=== PATIENT | female | born 1960 | race African-American/Black ===

== ENCOUNTER 2017-06-14 10:00 | Inpatient (IN) | payer OTHER ==
[~2017-06-14] VITALS: Ht 158.8 cm; Wt 75.3 kg
[2017-06-14] VITALS (10 sets, daily range): BP systolic 127–167; BP diastolic 80–102
[~2017-06-14 10:00] MED LIST: BUPROPION HCL100 MG ORAL; FLUOXETINE HCL20 MG ORAL; MULTIVITAMINS1 EAC2 ORAL; OMEPRAZOLE20 M2 ORAL; ZYPREXA2.5 MG ORAL
[2017-06-14] MEDS ORDERED: TYLENOL325 MG ORAL (10:53)
[2017-06-14] MEDS ORDERED: Ropivacaine 5mg/ml Vial 30ml INJ ONE (11:35)
[2017-06-14] MEDS ORDERED: Bacitracin 50000 Units Vial ONE (11:35)
[2017-06-14] MEDS ORDERED: Thrombin 5000 units spray kit TOPIC ONE (11:35)
[2017-06-14] MEDS ORDERED: Gelfoam Absorbable 1gm powder pkt TOPIC ONE (11:35)
[2017-06-14] MEDS ORDERED: Thrombin 5000 units TOPIC ONE (11:35)
[2017-06-14] MEDS ORDERED: NS Irrig 1000ml ONE (12:00)
[2017-06-14] MEDS ORDERED: fentaNYL 100 mcg/2 mL IV ONE (12:00)
[2017-06-14] MEDS ORDERED: Zemuron 50mg/5ml Inj IV ONE (12:00)
[2017-06-14] MEDS ORDERED: Sterile Water Irrig 1000ml IRRIG ONE (12:00)
[2017-06-14] MEDS ORDERED: LR 1000ml ONE (12:00)
[2017-06-14] MEDS ORDERED: Midazolam 2mg/2ml Inj ONE (12:00)
[2017-06-14] MEDS ORDERED: Propofol 200mg/20ml IV ONE (12:00)
--- NOTE | 2017-06-14 12:10 | Pre-Procedure Note/Attestation ---
Pre-Procedure Note/Attestation Complete Prior to Procedure Planned Procedure: not applicable Procedure Narrative: For L4-5 Anterior Decompression and stabelization with InFix Device Indications for Procedure Pre-Operative Diagnosis: Instability Disc Herniation L4-5 Attestation I attest that I discussed the nature of the procedure; its benefits; risks and complications; and alternatives (and the risks and benefits of such alternatives ), prior to the procedure, with the patient (or the patient's legal credit resolution representative). I attest that, if there was a reasonable possibility of needing a blood transfusion, the patient (or the patient's legal credit resolution representative) was given the [place] [facility] [employer] [facility] standardized written summary, pursuant to the Mahamed Burna Blood Safety Act ([place] Health and Safety Code # 1645, as amended). I attest that I re-evaluated the patient just prior to the surgery and that there has been no change in the patient's H&P, except as documented below: MALACHI COOPER Jun 14, 2017 12:10
[2017-06-14] MEDS ORDERED: Heparin 5000 units/ml inj ONE (12:12)
[2017-06-14] MEDS ORDERED: LR 1000ml 1,000 ML IVLG SCH (13:08)
[2017-06-14] MEDS ORDERED: Meperidine 50mg/ml Inj(FOR RIGORS ONLY) IVP ONE (13:15)
[2017-06-14] MEDS ORDERED: DiphenhydrAMINE 50mg/ml Inj IVP PRN (13:15)
[2017-06-14] MEDS ORDERED: Hydromorphone 0.5mg/0.5ml inj IVP PRN (13:15)
[2017-06-14] MEDS ORDERED: LR 1000ml 1,000 ML IV SCH (13:15)
[2017-06-14] MEDS ORDERED: LORazepam Inj 2mg/ml 1ml IV PRN (13:15)
--- NOTE | 2017-06-14 13:19 | Anethesia Preoperative Eval ---
Anesthesia Pre-op PMH/ROS General Date of Evaluation: Jun 14, 2017 Time of Evaluation: 12:00 Anesthesiologist: Tico ASA Score: ASA 2 Mallampati Score Class I : Soft palate, uvula, fauces, pillars visible Class II: Soft palate, uvula, fauces visible Class III: Soft palate, base of uvula visible Class IV: Only hard plate visible Mallampati Classification: Class II Surgeon: Jorge Diagnosis: Back pain Surgical Procedure: ALIF L4-5 Family History: no anesthesia problems Allergies: Coded Allergies: SULFA (SULFONAMIDE ANTIBIOTICS) (Verified Allergy, Intermediate, hives, ) Medications: see eMAR Past Medical History Cardiovascular: Denies: HTN, CAD, [place], valve dz, arrhythmia, other Pulmonary: Denies: asthma, COPD, EKATERINA, other Gastrointestinal/Genitourinary: Reports: GERD, Denies: CRI, ESRD, other Neurologic/Psychiatric: Reports: depression/anxiety, Denies: dementia, CVA, TIA, other Endocrine: Denies: DM, hypothyroidism, steroids, other HEENT: Denies: cataract (L), cataract (R), glaucoma, [place] (L), [place] (R), other Hematology/Immune: Reports: anemia, Denies: DVT, bleeding disorder, other Musculoskeletal/Integumentary: Denies: OA, RA, DJD, DDD, edema, other PMH Narrative: GERD, anemia, anxiety/depression PSxH Narrative: Fundoplication Anesthesia Pre-op Phys. Exam Physician Exam Last Vital Signs Date Time Temp Pulse Resp B/P (MAP) Pulse Ox O2 Delivery O2 Flow Rate FiO2 06/14/17 10:50 98.7 80 19 129/87 100 Room Air Constitutional: NAD Neurologic: CN 2-12 intact Cardiovascular: RRR, no M/R/G Respiratory: CTA Gastrointestinal: S/NT/ND Airway Exam Mallampati Score: Class II MO: full ROM: full Teeth: intact Anesthesia Pre-op A/P Labs WNL Studies Pre-op Studies: EKG - NSR, CXR - NAD Risk Assessment & Plan Assessment: Healthy female wihh h/o GERD,anemia and anxiety here for ALIF L4-5 Plan: GETA, Sedline Status Change Before Surgery: No Pre-Antibiotics Drug: Ancef Given Within 1 Hr of Incision: Yes Time Given: 12:30 ADRIANNA EUBANKS M.D. Jun 14, 2017 13:19
--- NOTE | 2017-06-14 13:20 | Immediate Post-Op Evaluation ---
Immediate Post-Op Evalulation Immediate Post-Op Evalulation Procedure: ALIF L4-5 Date of Evaluation: Jun 14, 2017 Time of Evaluation: 14:30 IV Fluids: 1450 Estimated Blood Loss: 50 Urinary Output: 20 Blood Pressure Systolic: 167 Blood Pressure Diastolic: 102 Pulse Rate: 94 Respiratory Rate: 22 O2 Sat by Pulse Oximetry: 99 Temperature (Fahrenheit): 98.0 Pain Score (1-10): 4 Nausea: No Vomiting: No Complications No complication Patient Status: awake, patent, extubated, none Hydration Status: adequate Drug: Ancef Given Within 1 Hr of Incision: Yes Time Given: 12:30 ADRIANNA EUBANKS M.D. Jun 14, 2017 13:20
[2017-06-14] MEDS ORDERED: PCA HYDROmorphone 1mg/ml 30 ML IV ONE (14:42)
--- NOTE | 2017-06-14 14:43 | Operative Note - PDOC ---
Operative Note Operative Note Pre-op Diagnosis: Instability Disc Herniation L4-5 Procedure: ALIF L4-5 with internal dixation Post-op Diagnosis: same as pre-op Operative Findings: consistent w/pre-op dx studies Surgeon: Jenae Residential Sales Manager: JEFFREY Yates Additional Surgeons: Johnson - Vascular Access Anesthesiologist: Tico Anesthesia: general Specimen: yes Complications: none Condition: stable Estimated Blood Loss: minimal Drains: none Implant(s) used?: Yes - Cyndi InFix with Cyndi DBMALACHI DAN Jun 14, 2017 14:43
[2017-06-14] MEDS ORDERED: Rate Change PCA 1 Each MISC PRN (14:45)
[2017-06-14] MEDS ORDERED: Naloxone 0.4mg/ml Inj IVP PRN ×2 (14:45)
[2017-06-14] MEDS ORDERED: HYDROmorphone 1mg/ml Carpuject IVP PRN (14:45)
[2017-06-14] MEDS ORDERED: Norco 7.5mg/325mg tab ORAL PRN ×2 (14:45)
[2017-06-14] MEDS ORDERED: HYDROmorphone 1mg/ml Carpuject SUBQ PRN (14:45)
[2017-06-14] MEDS ORDERED: Acetaminophen 650 MG SUPP RECTAL PRN (14:45)
[2017-06-14] MEDS ORDERED: PCA Education Pamphlet MISC ONE (14:45)
[2017-06-14] MEDS ORDERED: Norco 5mg/325mg tab ORAL PRN (14:45)
[2017-06-14] MEDS ORDERED: LORazepam 1mg tab ORAL PRN (14:45)
[2017-06-14] MEDS: PCA HYDROmorphone 1mg/ml 30 ML IV PRN (14:53)
--- NOTE | 2017-06-14 16:35 | Diagnostic Imaging Report ---
Indication: Back pain Comparison: None Findings: Fluoroscopic views of the lumbar spine were obtained. L4-5 disc replacement noted on several views. Impression: Intraoperative imaging
[2017-06-14] MEDS: DiphenhydrAMINE 50mg/ml Inj IVP PRN (18:11)
[2017-06-14] MEDS: PCA shift volume MISC SCH (19:00)
--- NOTE | 2017-06-14 19:00 | Operative Note - Dictated ---
DATE OF OPERATION: 06/14/2017 FACILITY: [facility]. SURGEON: Keaton Emanuel M.D. CO-SURGEON FOR VASCULAR APPROACH: Tae Johnson M.D. WIRE BRUSH OPERATOR: AYO Ibarra. ANESTHESIOLOGIST: Mahamed Doshi M.D. ANESTHESIA: General endotracheal with arterial blood pressure monitoring. PREOPERATIVE DIAGNOSES: Degenerative spondylo at L4-L5 with significant canal stenosis and neural foraminal narrowing causing back and leg pain. POSTOPERATIVE DIAGNOSES: Degenerative spondylo at L4-L5 with significant canal stenosis and neural foraminal narrowing causing back and leg pain. OPERATIVE PROCEDURE: Left-sided pararectus retroperitoneal approach to the lumbar spine with vessel mobilization and retraction by Dr. Johnson using a table fixed frame and reverse tip blades. An anterior annulotomy was done along with a nuclear diskectomy, partial vertebrectomy, and bilateral neural foraminotomy, and neurolysis. Open reduction and internal fixation was accomplished using an infix device with a medium footplate 10 mm high prosthesis with 3+ 3 degrees of lordosis added. Fusion was accomplished using bone protein and autogenous bone harvested during the decompression portion of the procedure. Image intensifier was used to aid in placement of the prosthesis. Pulse oximetry was used to monitor the lower extremities during the procedure. The patient was prepped and draped in supine. The lower abdomen was exposed and a left pararectus incision was made by Dr. Johnson. A retroperitoneal approach was used to reach the front of the lumbar spine. The aorta and vena cava were both mobilized and retracted using a table fixed frame with reverse tip blades. Center of the disk was marked, checked with image, and anterior annulotomy was done and then a nuclear diskectomy was done removing the cartilaginous endplate and soft nuclear disk. [id number] distraction was accomplished with detachable lordotic distractors beginning at 8 and progressing to 12 mm. Kerrisons, pituitaries, straight and angled were used to remove the disk and endplate. Larger instruments were used in the front progressing to smaller in the back. The PLL and posterior disk anulus was completely removed in each of the foramina right and left was completely opened. The space was templated up to 8 mm with a medium footprint. This fully filled the space created normal lordosis and reduced the spondylo. A 3+ 3 degrees of lordosis was added. The final endplate was then tapped into place, checked for positioning and side struts were inserted. They were checked again and then cold welded. Bone from the decompression was placed between the plates as well as a bone protein. The wound was closed in layers including the anterior posterior sheath, subcutaneous and skin. Blood loss was well under 50 mL. The patient was placed in a bulky compression dressing, returned to recovery room in good condition. Keaton Emanuel M.D. DR: HEATHER JOB#: [id number] CC: LAURIE
--- NOTE | 2017-06-14 19:45 | Operative Note - Dictated ---
DATE OF OPERATION: 06/14/2017 VASCULAR SURGEON: Tae Johnson M.D. SPINE SURGEON: Keaton Emanuel M.D. PREOPERATIVE DIAGNOSIS: Degenerative disk disease. POSTOPERATIVE DIAGNOSIS: Degenerative disk disease. PROCEDURE PERFORMED: Anterior retroperitoneal exposure of L4-L5 vertebral interspace. INDICATIONS: The patient is a very pleasant woman, who is seen in my office prior to surgery. She has been scheduled for anterior fusion at L4-L5. She has no prior history of anterior spine surgery. No history of deep venous thrombosis or bleeding complications were described. She was made aware of the risks of surgery including possibly vascular injury, possible need for blood transfusion, and deep venous thrombosis. DESCRIPTION OF FINDINGS: A vertical midline incision was used. A left retroperitoneal approach was used. There is no peritoneal or ureteral violation. There is no vascular injury. Exposure of L4-L5 was obtained by retraction of left iliac vessels towards the patient's right above the iliac bifurcation. Fluoroscopy was used to confirm the appropriate level prior to instrumentation. Upon completion, the peritoneum and ureter were intact. Pulse oximetry was normal on the left leg throughout the case. Blood loss was less than 50 mL and complications were none. DESCRIPTION OF PROCEDURE: The patient was taken to the operating room. General anesthesia was used. IV antibiotics were given. The patient's abdomen was prepped and draped. Appropriate time-out for procedures were taken. A vertical midline incision was made infraumbilically. The anterior fascia was incised longitudinally midline. A plane was identified posterior to the left rectus abdominis developed posterolaterally towards the patient's left. The retroperitoneal space was entered below the arcuate line. The peritoneum and ureter were mobilized towards the patient's right exposing the left common iliac artery and vein. The dissection was carried to the left side of the left common iliac artery and vein. Overlying lymphatics were ligated with vascular clips. The iliolumbar vein was identified and encircled using a 2-0 silk tie and then triply ligated proximally and distally with vascular clips and then divided. This allowed us to retract the left iliac vessels towards the patient's right. The L4 segmental artery and vein were also identified, ligated with vascular clips, and then divided, and then the Omni retractor was set in place. Guo blades were used to retract the lateral aspects and then fluoroscopy was used to confirm the appropriate level. Instrumentation was performed at L4-L5 dictated separately. On completion, the peritoneum and ureter were intact and iliac vessels were intact. Anterior fascia was then closed using #1 PDS in a running fashion. The skin and subcutaneous tissue were closed with 3-0 Vicryl and 4-0 Monocryl in a running subcuticular closure technique. Tae Johnson M.D. DR: ALINE JOB#: [id number] CC:
--- NOTE | 2017-06-14 20:43 | General Progress Note ---
Assessment/Plan Assessment/Plan Instability Disc Herniation L4-5 ALIF L4-5 with internal dixation Lumbar disc disease PLAN 1. incentive spirometry 2. DVT prophylaxis 3. PT evaluation and therapy 4. Hydration 5. Pain management 6. discharge once stable with outpatient follow up Subjective Allergies: Coded Allergies: SULFA (SULFONAMIDE ANTIBIOTICS) (Verified Allergy, Intermediate, hives, ) Subjective post op Objective Last 24 Hour Vital Signs Date Time Temp Pulse Resp B/P (MAP) Pulse Ox O2 Delivery O2 Flow Rate FiO2 06/14/17 16:50 22 06/14/17 16:20 22 06/14/17 15:50 22 06/14/17 15:35 22 06/14/17 15:30 97.6 06/14/17 15:26 97.6 100 18 136/80 100 Nasal Cannula 3.0 06/14/17 15:23 97.6 06/14/17 15:20 19 06/14/17 15:15 97 14 127/86 100 Nasal Cannula 3.0 06/14/17 15:05 91 20 141/84 100 Nasal Cannula 3.0 06/14/17 15:05 12 06/14/17 14:56 97.6 06/14/17 14:55 93 18 138/88 100 Nasal Cannula 3.0 06/14/17 14:53 13 06/14/17 14:40 88 18 151/89 100 Nasal Cannula 3.0 06/14/17 14:30 87 18 142/89 100 Simple Mask 6.0 06/14/17 14:25 86 11 147/85 100 Simple Mask 6.0 06/14/17 14:24 94 22 99 06/14/17 14:20 98.9 90 15 167/102 100 Simple Mask 6.0 06/14/17 10:50 98.7 80 19 129/87 100 Room Air Intake and Output 06/14/17 06/15/17 19:00 07:00 Intake Total 3625 ml Output Total 70 ml Balance 3555 ml Intake IV Total 3625 ml Output Urine Total 20 ml Estimated Blood Loss 50 ml # Voids 1 Height (Feet): 5 Height (Inches): 2.50 Weight (Pounds): 166 Objective WDWN NAD clear breath sounds bilaterally without rhonchi or wheeze [id number] without MRG no CCE nonfocal BINU MERCEDES Jun 14, 2017 20:43
[2017-06-14] MEDS: ceFAZolin sod 1 GM in D5W 55 ML IV SCH (21:45)
[2017-06-15] VITALS: BP 109/73
[2017-06-15 04:00] VITALS: BP 106/68
[2017-06-15] MEDS: ceFAZolin sod 1 GM in D5W 55 ML IV SCH ×2 (05:43→13:53)
[2017-06-15] MEDS: PCA shift volume MISC SCH ×2 (07:00→19:10)
[2017-06-15] MEDS: DiphenhydrAMINE 50mg/ml Inj IVP PRN ×2 (07:42→15:13)
--- NOTE | 2017-06-15 08:34 | 48 Hour Post Anesthesia Eval ---
Post Anesthesia Evaluation Procedure: ALIF L4-5 Date of Evaluation: Jun 15, 2017 Time of Evaluation: 13:35 Blood Pressure Systolic: 106 0: 68 Pulse Rate: 89 Respiratory Rate: 18 Temperature (Fahrenheit): 99.3 O2 Sat by Pulse Oximetry: 96 Airway: patent Nausea: No Vomiting: No Pain Intensity: 4 Hydration Status: adequate Cardiopulmonary Status: Stable Mental Status/LOC: patient returned to baseline Follow-up Care/Observations: As per surgery Post-Anesthesia Complications: No anesthetic complication Follow-up care needed: N/A ADRIANNA EUBANKS M.D. Jun 15, 2017 08:33
[2017-06-15 08:38] VITALS: BP 112/74
--- NOTE | 2017-06-15 09:38 | General Progress Note ---
Assessment/Plan Assessment/Plan Instability Disc Herniation L4-5 ALIF L4-5 with internal dixation Lumbar disc disease PLAN 1. incentive spirometry 2. DVT prophylaxis 3. PT evaluation and therapy 4. Hydration and advance diet per surgery 5. Pain management 6. discharge once stable with outpatient follow up Subjective Allergies: Coded Allergies: SULFA (SULFONAMIDE ANTIBIOTICS) (Verified Allergy, Intermediate, hives, ) Subjective post op Objective Last 24 Hour Vital Signs Date Time Temp Pulse Resp B/P (MAP) Pulse Ox O2 Delivery O2 Flow Rate FiO2 06/15/17 08:38 98.7 85 20 112/74 94 Room Air 06/15/17 08:33 89 18 96 06/15/17 08:00 18 06/15/17 04:11 18 06/15/17 04:00 99.3 89 18 106/68 96 Room Air 06/15/17 00:00 18 06/15/17 00:00 98.7 88 18 109/73 98 Nasal Cannula 2.0 06/14/17 21:15 98.8 06/14/17 20:00 99.5 88 18 130/84 99 Nasal Cannula 2.0 06/14/17 20:00 18 06/14/17 16:50 22 06/14/17 16:20 22 06/14/17 15:50 22 06/14/17 15:35 22 06/14/17 15:30 97.6 06/14/17 15:26 97.6 100 18 136/80 100 Nasal Cannula 3.0 06/14/17 15:23 97.6 06/14/17 15:20 19 06/14/17 15:15 97 14 127/86 100 Nasal Cannula 3.0 06/14/17 15:05 91 20 141/84 100 Nasal Cannula 3.0 06/14/17 15:05 12 06/14/17 14:56 97.6 06/14/17 14:55 93 18 138/88 100 Nasal Cannula 3.0 06/14/17 14:53 13 06/14/17 14:40 88 18 151/89 100 Nasal Cannula 3.0 06/14/17 14:30 87 18 142/89 100 Simple Mask 6.0 06/14/17 14:25 86 11 147/85 100 Simple Mask 6.0 06/14/17 14:24 94 22 99 06/14/17 14:20 98.9 90 15 167/102 100 Simple Mask 6.0 06/14/17 10:50 98.7 80 19 129/87 100 Room Air Height (Feet): 5 Height (Inches): 2.50 Weight (Pounds): 166 Objective WDWN NAD clear breath sounds bilaterally without rhonchi or wheeze [id number] without MRG no CCE nonfocal BINU MERCEDES Jun 15, 2017 09:38
[2017-06-15 12:00] VITALS: BP 115/69
[2017-06-15 16:18] VITALS: BP 115/70
[2017-06-15 20:07] VITALS: BP 144/89
[2017-06-15] MEDS: PCA HYDROmorphone 1mg/ml 30 ML IV PRN (23:10)
[2017-06-16] VITALS (7 sets, daily range): BP systolic 111–132; BP diastolic 63–83
[2017-06-16] MEDS: PCA shift volume MISC SCH (07:00)
--- NOTE | 2017-06-16 09:48 | General Progress Note ---
Assessment/Plan Assessment/Plan Instability Disc Herniation L4-5 ALIF L4-5 with internal dixation Lumbar disc disease PLAN 1. incentive spirometry 2. DVT prophylaxis 3. PT evaluation and therapy 4. Hydration and advance diet per surgery 5. Pain management 6. discharge once stable with outpatient follow up Subjective Allergies: Coded Allergies: SULFA (SULFONAMIDE ANTIBIOTICS) (Verified Allergy, Intermediate, hives, ) Subjective post op stable working with PT Objective Last 24 Hour Vital Signs Date Time Temp Pulse Resp B/P (MAP) Pulse Ox O2 Delivery O2 Flow Rate FiO2 06/16/17 08:00 99.5 91 18 125/77 97 Room Air 06/16/17 04:37 99.5 93 18 116/72 95 Room Air 06/16/17 04:00 18 06/16/17 00:15 98.9 91 18 112/70 97 Room Air 06/16/17 00:00 17 06/15/17 20:07 99.4 94 19 144/89 99 Room Air 06/15/17 20:00 17 06/15/17 16:18 98.7 88 20 115/70 96 Room Air 06/15/17 16:00 19 06/15/17 12:00 98.6 87 19 115/69 96 Room Air 06/15/17 12:00 19 Height (Feet): 5 Height (Inches): 2.50 Weight (Pounds): 166 Objective WDWN NAD clear breath sounds bilaterally without rhonchi or wheeze [id number] without MRG no CCE nonfocal BINU MERCEDES Jun 16, 2017 09:48
[2017-06-16] MEDS: DiphenhydrAMINE 50mg/ml Inj IVP PRN (10:44)
--- NOTE | 2017-06-16 13:07 | General Surgery Progress Note ---
General Surgery-Progress Note Subjective Procedure Performed ALIF L4-5 with internal dixation Symptoms: improved Objective Last 24 Hour Vital Signs Date Time Temp Pulse Resp B/P (MAP) Pulse Ox O2 Delivery O2 Flow Rate FiO2 06/16/17 12:00 17 06/16/17 12:00 98.3 88 18 132/83 99 Room Air 06/16/17 08:00 99.5 91 18 125/77 97 Room Air 06/16/17 08:00 18 06/16/17 04:37 99.5 93 18 116/72 95 Room Air 06/16/17 04:00 18 06/16/17 00:15 98.9 91 18 112/70 97 Room Air 06/16/17 00:00 17 06/15/17 20:07 99.4 94 19 144/89 99 Room Air 06/15/17 20:00 17 06/15/17 16:18 98.7 88 20 115/70 96 Room Air 06/15/17 16:00 19 Dressing: dry Wound: clean Drains: none Additional Comments Patient not passing gas regularly >> continue NPO. PT / OT working with patient MALACHI Villarreal Jun 16, 2017 13:07
[2017-06-16] MEDS ORDERED: Naloxone 0.4mg/ml Inj IVP PRN ×2 (20:15)
[2017-06-16] MEDS ORDERED: DiphenhydrAMINE 50mg/ml Inj IVP PRN ×2 (20:15)
[2017-06-16] MEDS ORDERED: Rate Change PCA 1 Each MISC PRN ×2 (20:15)
[2017-06-16] MEDS ORDERED: PCA HYDROmorphone 1mg/ml 30 ML IV PRN (20:15)
[2017-06-16] MEDS ORDERED: PCA Education Pamphlet MISC ONE (21:30)
[2017-06-17 04:00] VITALS: BP 131/80
[2017-06-17] MEDS ORDERED: PCA shift volume MISC SCH ×2 (07:00)
[2017-06-17 08:44] VITALS: BP 119/81
--- NOTE | 2017-06-17 09:21 | General Progress Note ---
Assessment/Plan Assessment/Plan Instability Disc Herniation L4-5 ALIF L4-5 with internal dixation Lumbar disc disease PLAN 1. incentive spirometry 2. DVT prophylaxis 3. PT evaluation and therapy 4. advance diet and dc in am 5. Pain management 6. discharge once stable with outpatient follow up Subjective Allergies: Coded Allergies: SULFA (SULFONAMIDE ANTIBIOTICS) (Verified Allergy, Intermediate, hives, ) Subjective post op stable and tolerating liquids working with PT Objective Last 24 Hour Vital Signs Date Time Temp Pulse Resp B/P (MAP) Pulse Ox O2 Delivery O2 Flow Rate FiO2 06/17/17 08:44 97.7 89 20 119/81 99 Room Air 06/17/17 08:00 18 06/17/17 04:19 18 06/17/17 04:00 99.2 86 18 131/80 99 Room Air 06/17/17 00:27 18 06/16/17 23:51 99.1 84 18 111/68 98 Room Air 06/16/17 23:28 99.6 06/16/17 22:58 18 06/16/17 20:39 18 06/16/17 20:00 99.6 91 18 119/77 97 Room Air 06/16/17 18:03 99.1 06/16/17 16:00 18 06/16/17 16:00 99.4 86 18 112/63 97 Room Air 06/16/17 12:00 17 06/16/17 12:00 98.3 88 18 132/83 99 Room Air Intake and Output 06/17/17 06/18/17 19:00 07:00 Intake Total 320 ml Balance 320 ml Intake Oral 320 ml # Voids 1 Height (Feet): 5 Height (Inches): 2.50 Weight (Pounds): 166 Objective WDWN NAD clear breath sounds bilaterally without rhonchi or wheeze [id number] without MRG no CCE nonfocal BINU MERCEDES Jun 17, 2017 09:21
[2017-06-17 12:00] VITALS: BP 117/78
[2017-06-17 15:38] VITALS: BP 112/83
[2017-06-17 20:00] VITALS: BP 117/76
[2017-06-18] VITALS: BP 116/73
[2017-06-18 04:00] VITALS: BP 123/86
[2017-06-18 08:00] VITALS: BP 115/91
--- NOTE | 2017-06-18 08:55 | General Progress Note ---
Assessment/Plan Assessment/Plan Instability Disc Herniation L4-5 ALIF L4-5 with internal dixation Lumbar disc disease PLAN 1. incentive spirometry 2. DVT prophylaxis 3. PT evaluation and therapy 4. advance diet and dc later today if stable 5. Pain management 6. discharge once stable with outpatient follow up Subjective Allergies: Coded Allergies: SULFA (SULFONAMIDE ANTIBIOTICS) (Verified Allergy, Intermediate, hives, ) Subjective post op vomited x 1 working with PT Objective Last 24 Hour Vital Signs Date Time Temp Pulse Resp B/P (MAP) Pulse Ox O2 Delivery O2 Flow Rate FiO2 06/18/17 08:00 97.5 82 18 115/91 Room Air 06/18/17 04:00 97.5 76 18 123/86 100 Room Air 06/18/17 00:26 98.5 06/18/17 00:00 97.9 82 18 116/73 100 Room Air 06/17/17 20:00 98.5 96 18 117/76 97 Room Air 06/17/17 15:38 97.9 80 20 112/83 100 Room Air 06/17/17 12:00 98.3 85 20 117/78 100 Room Air Height (Feet): 5 Height (Inches): 2.50 Weight (Pounds): 166 Objective WDWN NAD clear breath sounds bilaterally without rhonchi or wheeze [id number] without MRG no CCE nonfocal BINU MERCEDES Jun 18, 2017 08:55
--- NOTE | 2017-06-18 09:42 | General Surgery Progress Note ---
General Surgery-Progress Note Subjective Procedure Performed ALIF L4-5 with internal dixation Symptoms: improved Objective Last 24 Hour Vital Signs Date Time Temp Pulse Resp B/P (MAP) Pulse Ox O2 Delivery O2 Flow Rate FiO2 06/18/17 08:00 97.5 82 18 115/91 Room Air 06/18/17 04:00 97.5 76 18 123/86 100 Room Air 06/18/17 00:26 98.5 06/18/17 00:00 97.9 82 18 116/73 100 Room Air 06/17/17 20:00 98.5 96 18 117/76 97 Room Air 06/17/17 15:38 97.9 80 20 112/83 100 Room Air 06/17/17 12:00 98.3 85 20 117/78 100 Room Air Dressing: dry Wound: clean Additional Comments Patient attempted solid food and dis not tolerate this AM. Neuro intact. PT / OT continues. Dr. Pearl liriano. MALACHI COOPER Jun 18, 2017 09:42
[2017-06-18 12:00] VITALS: BP 113/66
[2017-06-18 16:00] VITALS: BP 139/73
[2017-06-18 20:59] VITALS: BP 124/82
[2017-06-19 00:30] VITALS: BP 128/80
[2017-06-19 04:00] VITALS: BP 130/70
[2017-06-19 08:00] VITALS: BP 116/77
--- NOTE | 2017-06-19 10:41 | General Progress Note ---
Assessment/Plan Problem List: (1) GERD (gastroesophageal reflux disease) ICD Codes: K21.9 - Gastro-esophageal reflux disease without esophagitis SNOMED: 342272517 (2) Vomiting ICD Codes: R11.10 - Vomiting, unspecified SNOMED: 929966788 (3) Disc disorder of lumbar region ICD Codes: M51.9 - Unspecified thoracic, thoracolumbar and lumbosacral intervertebral disc disorder SNOMED: 03757450, 381939231 Status: stable, progressing Assessment/Plan added ppi pain rx mobilize dc planning when able to tolerate pos Subjective ROS Limited/Unobtainable: No Constitutional: Reports: malaise, weakness HEENT: Reports: no symptoms Cardiovascular: Reports: no symptoms Respiratory: Reports: no symptoms Gastrointestinal/Abdominal: Reports: nausea, vomiting Genitourinary: Reports: no symptoms Neurologic/Psychiatric: Reports: no symptoms Endocrine: Reports: no symptoms Hematologic/Lymphatic: Reports: no symptoms Allergies: Coded Allergies: SULFA (SULFONAMIDE ANTIBIOTICS) (Verified Allergy, Intermediate, hives, ) All Systems: reviewed and negative except above Subjective not tolerating pos. vomiting yesterday, stomach feels "numb" Not getting her PPI Objective Last 24 Hour Vital Signs Date Time Temp Pulse Resp B/P (MAP) Pulse Ox O2 Delivery O2 Flow Rate FiO2 06/19/17 09:48 97.9 06/19/17 08:00 98.9 83 18 116/77 97 Room Air 06/19/17 04:00 97.9 75 18 130/70 96 Room Air 06/19/17 00:30 98.2 84 19 128/80 97 Room Air 06/18/17 20:59 98.4 89 20 124/82 99 Room Air 06/18/17 16:00 97.8 78 18 139/73 98 Room Air 06/18/17 12:00 98.2 79 18 113/66 98 Room Air Intake and Output 06/19/17 06/20/17 19:00 07:00 Intake Total 240 ml Balance 240 ml Intake Oral 240 ml Height (Feet): 5 Height (Inches): 2.50 Weight (Pounds): 166 General Appearance: WD/WN, alert Neck: supple Cardiovascular: normal rate, regular rhythm Respiratory/Chest: chest wall non-tender, lungs clear, normal breath sounds, no respiratory distress Edema: no edema noted Arm (L), no edema noted Arm (R), no edema noted Leg (L), no edema noted Leg (R), no edema noted Pedal (L), no edema noted Pedal (R), no edema noted Generalized ZOLTAN AGUILAR Jun 19, 2017 10:41
[2017-06-19 11:41] LABS: BASOPHILS % (AUTO) 0.5 % (0.0-2.0); MEAN CORPUSCULAR HEMOGLOBIN 27.9 PG (27.0-31.0); MEAN CORPUSCULAR VOLUME 90 FL (80-99); MEAN PLATELET VOLUME 8.9 FL (6.5-10.1); MONOCYTES % (AUTO) 4.9 % (1.0-10.0); NEUTROPHILS % (AUTO) 71.6 % (45.0-75.0); PLATELET COUNT 296 K/UL (150-450); RED BLOOD COUNT 4.16 M/UL (4.20-5.40); RED CELL DISTRIBUTION WIDTH 12.6 % (11.6-14.8); WHITE BLOOD COUNT 8.2 K/UL (4.8-10.8)
[2017-06-19 12:00] VITALS: BP 128/64
[2017-06-19 12:02] LABS: ALANINE AMINOTRANSFERASE 13 U/L (12-78); ALBUMIN/GLOBULIN RATIO 0.6 (1.0-2.7); ANION GAP 7 mmol/L (5-15); ASPARTATE AMINO TRANSFERASE 15 U/L (15-37); CALCIUM 9.1 MG/DL (8.5-10.1); CARBON DIOXIDE 27 MMOL/L (21-32); CHLORIDE 107 MMOL/L (98-107); CREATININE 0.8 MG/DL (0.55-1.30); GLOMERULAR FILTRATION RATE > 60 mL/min (>60); POTASSIUM 4.5 MMOL/L (3.5-5.1); SODIUM 141 MMOL/L (136-145); TOTAL PROTEIN 7.2 G/DL (6.4-8.2)
[2017-06-19 16:54] VITALS: BP 125/73
[2017-06-19 20:50] VITALS: BP 135/72
[2017-06-19] MEDS ORDERED: HYDROmorphone 1mg/ml Carpuject SUBQ PRN (23:15)
[2017-06-19] MEDS ORDERED: Norco 7.5mg/325mg tab ORAL PRN (23:15)
[2017-06-20 00:37] VITALS: BP 107/73
[2017-06-20] MEDS ORDERED: HYDROmorphone 1mg/ml Carpuject SUBQ PRN (03:15)
[2017-06-20] MEDS ORDERED: Norco 7.5mg/325mg tab ORAL PRN ×2 (03:15)
[2017-06-20 04:46] VITALS: BP 129/70
[2017-06-20 08:00] VITALS: BP_SYST 116; BP_SYST 132; BP_DIAS 75; BP_DIAS 78
[2017-06-20 12:00] VITALS: BP 116/74
--- NOTE | 2017-06-20 12:31 | General Progress Note ---
Assessment/Plan Problem List: (1) GERD (gastroesophageal reflux disease) ICD Codes: K21.9 - Gastro-esophageal reflux disease without esophagitis SNOMED: 175791571 (2) Vomiting ICD Codes: R11.10 - Vomiting, unspecified SNOMED: 293365716 (3) Disc disorder of lumbar region ICD Codes: M51.9 - Unspecified thoracic, thoracolumbar and lumbosacral intervertebral disc disorder SNOMED: 71477430, 722211013 Status: stable, progressing Assessment/Plan ppi rx antiemetics pain rx mobilize dc planning when able to tolerate pos Subjective ROS Limited/Unobtainable: No Constitutional: Reports: malaise, weakness HEENT: Reports: no symptoms Cardiovascular: Reports: no symptoms Respiratory: Reports: no symptoms Gastrointestinal/Abdominal: Reports: nausea, vomiting Genitourinary: Reports: no symptoms Neurologic/Psychiatric: Reports: no symptoms Endocrine: Reports: no symptoms Hematologic/Lymphatic: Reports: no symptoms Allergies: Coded Allergies: SULFA (SULFONAMIDE ANTIBIOTICS) (Verified Allergy, Intermediate, hives, ) All Systems: reviewed and negative except above Subjective not tolerating pos. vomiting yesterday Objective Last 24 Hour Vital Signs Date Time Temp Pulse Resp B/P (MAP) Pulse Ox O2 Delivery O2 Flow Rate FiO2 06/20/17 04:46 98.7 74 18 129/70 99 Room Air 06/20/17 00:37 98.8 81 18 107/73 100 Room Air 06/19/17 20:50 98.7 93 20 135/72 98 Room Air 06/19/17 16:54 99.0 83 18 125/73 Room Air Height (Feet): 5 Height (Inches): 2.50 Weight (Pounds): 166 Objective General Appearance: WD/WN, alert Neck: supple Cardiovascular: normal rate, regular rhythm Respiratory/Chest: chest wall non-tender, lungs clear, normal breath sounds, no respiratory distress Edema: no edema noted Arm (L), no edema noted Arm (R), no edema noted Leg (L), no edema noted Leg (R), no edema noted Pedal (L), no edema noted Pedal (R), no edema noted Generalized ZOLTAN AGUILAR Jun 20, 2017 12:31
[2017-06-20 16:00] VITALS: BP 124/83
[2017-06-20 20:05] VITALS: BP 127/76
[2017-06-21 04:00] VITALS: BP 105/61
[2017-06-21 08:00] VITALS: BP 110/76
[2017-06-21 12:00] VITALS: BP 118/81
--- NOTE | 2017-06-21 12:04 | General Progress Note ---
Assessment/Plan Assessment/Plan Instability Disc Herniation L4-5 ALIF L4-5 with internal dixation Lumbar disc disease PLAN 1. incentive spirometry 2. DVT prophylaxis 3. PT evaluation and therapy 4. tolerating diet 5. Pain management 6. discharge home today Subjective Allergies: Coded Allergies: SULFA (SULFONAMIDE ANTIBIOTICS) (Verified Allergy, Intermediate, hives, ) Subjective weekend events noted overall doing well cleared for discharge Objective Last 24 Hour Vital Signs Date Time Temp Pulse Resp B/P (MAP) Pulse Ox O2 Delivery O2 Flow Rate FiO2 06/21/17 08:00 98.4 84 18 110/76 98 Room Air 06/21/17 04:00 98.2 81 18 105/61 97 Room Air 06/20/17 20:05 97.9 96 18 127/76 95 Room Air 06/20/17 16:00 97.0 86 18 124/83 95 Room Air Intake and Output 06/21/17 06/22/17 19:00 07:00 Intake Total 240 ml Balance 240 ml Intake Oral 240 ml Height (Feet): 5 Height (Inches): 2.50 Weight (Pounds): 166 Objective WDWN NAD clear breath sounds bilaterally without rhonchi or wheeze [id number] without MRG NABS nontender no CCE nonfocal BINU MERCEDES Jun 21, 2017 12:04
--- NOTE | 2017-06-22 15:52 | Discharge Summary ---
Discharge Summary Hospital Course Date of Admission Jun 14, 2017 at 10:00 Date of Discharge Jun 21, 2017 at 15:30 Admitting Diagnosis Instability Disc Herniation L4-5 Reason for Hospitalization: elective surgery HPI Vianey Pacheco is a 57 year old female who was admitted on Jun 14, 2017 at 10:00 for instability, disc herniation L4-5 Patient was admitted for elective surgery Consultations dr Kang - IM Procedures s/p 06/14/[address] Jenae MARLEY L4-5 with internal fixation s/p 06/14/[address] Johnson Anterior retroperitoneal exposure of L4-L5 vertebral interspace. Hospital Course s/p surgery neurovascular intact initially NPO with IVF hydration pain management OOB and mobilize with PT/OT IS while in the bed DVT prophylaxis once bowel function returned, started on diet and slowly advanced as tolerated a/emetic prn GI prophylaxis able to tolerate diet, pain controlled, dressing C/D/I, n/v intact, voided freely, ambulated cleared for dc home outpt fup with surgeon as advised by surgeon FINAL DIAGNOSIS 1.Lumbar disk disease 2.Instability disc herniation L4-5 3.Degenerative spondylosis at L4-L5 with significant canal stenosis and neural foraminal narrowing causing back and leg pain. 4.s/p anterior lumbar interbody fusion L4-5 with internal fixation Discharge Condition Upon Discharge: stable Discharge Disposition Patient was discharged to Home (01) Discharge Diagnoses: Discharge Instructions Discharge Instructions Special Instructions I have been assigned to complete a D/C Summary on this account. I was not involved in the patient management Milly Castillo NP ([place]) Jun 22, 2017 15:52
== END 2017-06-21 15:30 | disposition home or self-care (01) | DRG 460 ==
LOC: SDSOVERFLO 10:00 → 3E 16:05
PROC: 0SG00A0 Fusion of Lumbar Vertebral Joint with Interbody Fusion Device, Anterior Approach, Anterior Column, Open Approach (ICD-10-PCS; principal; 2017-06-14 12:30)
PROC: 01NB0ZZ Release Lumbar Nerve, Open Approach (ICD-10-PCS; principal; 2017-06-14 12:30)
PROC: 0SB20ZZ Excision of Lumbar Vertebral Disc, Open Approach (ICD-10-PCS; principal; 2017-06-14 12:30)
DX: M51.16 Intervertebral disc disorders with radiculopathy, lumbar region (principal); F32.9 Major depressive disorder, single episode, unspecified; K21.9 Gastro-esophageal reflux disease without esophagitis; M53.2X6 Spinal instabilities, lumbar region; M47.26 Other spondylosis with radiculopathy, lumbar region; M48.061 Spinal stenosis, lumbar region without neurogenic claudication; Z88.2 Allergy status to sulfonamides; R11.10 Vomiting, unspecified; Z87.891 Personal history of nicotine dependence
CPT/HCPCS: 36415; 72020; 76001; 80053; 85025; 86850; 86900; 86901; 87081; 94003; 94150; J2250; J2405

== ENCOUNTER 2018-05-09 05:36 | Inpatient (IN) | payer OTHER ==
[2018-05-09] VITALS (14 sets, daily range): BP systolic 113–185; BP diastolic 63–116
[~2018-05-09] VITALS: Ht 157.5 cm; Wt 71.7 kg
[~2018-05-09 05:36] MED LIST changes: +TYLENOL325 MG ORAL
[2018-05-09] MEDS ORDERED: TRAMADOL HCL50 MG ORAL (06:25)
[2018-05-09] MEDS ORDERED: PRAVACHOL40 MG ORAL (06:25)
[2018-05-09] MEDS ORDERED: LR 1000ml ONE (07:00)
[2018-05-09] MEDS ORDERED: Gelfoam Size TOPIC ONE (07:03)
[2018-05-09] MEDS ORDERED: Thrombin 5000 units TOPIC ONE (07:03)
[2018-05-09] MEDS ORDERED: Thrombin 5000 units spray kit TOPIC ONE (07:03)
[2018-05-09] MEDS ORDERED: Gelfoam Absorbable 1gm powder pkt TOPIC ONE (07:04)
[2018-05-09] MEDS ORDERED: Bupivacaine w/Epi 0.5% 30ml Vial INJ ONE (07:04)
[2018-05-09] MEDS ORDERED: Bacitracin 50000 Units Vial ONE (07:04)
--- NOTE | 2018-05-09 07:09 | Pre-Procedure Note/Attestation ---
Pre-Procedure Note/Attestation Complete Prior to Procedure Planned Procedure: not applicable Procedure Narrative: Severe Neural compression at C5-6, C6-7, Planned to do ACDF C5-6, C6-7 with instrumentation. Indications for Procedure Pre-Operative Diagnosis: Severe Neural compression at C5-6, C6-7 Attestation I attest that I discussed the nature of the procedure; its benefits; risks and complications; and alternatives (and the risks and benefits of such alternatives ), prior to the procedure, with the patient (or the patient's legal wine sales representative). I attest that, if there was a reasonable possibility of needing a blood transfusion, the patient (or the patient's legal wine sales representative) was given the [place] Department of Health Services standardized written summary, pursuant to the Mahamed Rivereno Blood Safety Act ([place] Health and Safety Code # 1645, as amended). I attest that I re-evaluated the patient just prior to the surgery and that there has been no change in the patient's H&P, except as documented below: Keaton Yates May 09, 2018 07:09
[2018-05-09] MEDS ORDERED: Midazolam 2mg/2ml Inj ONE (07:13)
[2018-05-09] MEDS ORDERED: fentaNYL 100 mcg/2 mL IV ONE (07:14)
[2018-05-09] MEDS ORDERED: Sodium Chloride 10ml vial INJ ONE (07:16)
[2018-05-09] MEDS ORDERED: Propofol 200mg/20ml IV ONE (07:16)
[2018-05-09] MEDS ORDERED: Lidocaine 1% MPF 10mg/ml 5ml ONE (07:16)
[2018-05-09] MEDS ORDERED: Zemuron 50mg/5ml Inj IV ONE (07:26)
[2018-05-09] MEDS ORDERED: LR 1000ml 1,000 ML IVLG SCH (08:09)
[2018-05-09] MEDS ORDERED: Hydromorphone 0.5mg/0.5ml inj IVP PRN (08:15)
[2018-05-09] MEDS ORDERED: LORazepam Inj 2mg/ml 1ml IV PRN (08:15)
[2018-05-09] MEDS ORDERED: DiphenhydrAMINE 50mg/ml Inj IVP PRN (08:15)
[2018-05-09] MEDS ORDERED: Meperidine 50mg/ml Inj(FOR RIGORS ONLY) IVP PRN (08:15)
--- NOTE | 2018-05-09 08:18 | Anethesia Preoperative Eval ---
Anesthesia Pre-op PMH/ROS General Date of Evaluation: May 09, 2018 Time of Evaluation: 07:15 Anesthesiologist: russell ASA Score: ASA 2 Mallampati Score Class I : Soft palate, uvula, fauces, pillars visible Class II: Soft palate, uvula, fauces visible Class III: Soft palate, base of uvula visible Class IV: Only hard plate visible Mallampati Classification: Class II Surgeon: Jenae Diagnosis: Cervical instability Surgical Procedure: ACDF C5-6, C6-7 Family History: no anesthesia problems Allergies: Coded Allergies: SULFA (SULFONAMIDE ANTIBIOTICS) (Verified Allergy, Intermediate, hives, ) Medications: see eMAR Past Medical History Cardiovascular: Denies: HTN, CAD, VA, valve dz, arrhythmia, other Pulmonary: Denies: asthma, COPD, EKATERINA, other Gastrointestinal/Genitourinary: Reports: GERD; Denies: CRI, ESRD, other Neurologic/Psychiatric: Reports: depression/anxiety; Denies: dementia, CVA, TIA, other Endocrine: Denies: DM, hypothyroidism, steroids, other HEENT: Denies: cataract (L), cataract (R), glaucoma, KIPNUK (L), KIPNUK (R), other Hematology/Immune: Denies: anemia, DVT, bleeding disorder, other Musculoskeletal/Integumentary: Denies: OA, RA, DJD, DDD, edema, other PMH Narrative: GERD PSxH Narrative: Lumbar fusion, BTL, fundoplication Anesthesia Pre-op Phys. Exam Physician Exam Last Vital Signs Date Time Temp Pulse Resp B/P (MAP) Pulse Ox O2 Delivery O2 Flow Rate FiO2 05/09/18 06:36 Room Air 05/09/18 06:10 96.9 77 18 126/63 (84) 100 96.9 Constitutional: NAD Neurologic: CN 2-12 intact Cardiovascular: RRR, no M/R/G Respiratory: CTA Gastrointestinal: S/NT/ND Airway Exam Mallampati Score: Class II MO: full ROM: full Teeth: intact Anesthesia Pre-op A/P Labs WNL Studies Pre-op Studies: EKG - NSR Risk Assessment & Plan Assessment: 58 yo female with h/o GERD now for ACDF Plan: GETA, SedLine Status Change Before Surgery: No Pre-Antibiotics Drug: Ancef Given Within 1 Hr of Incision: Yes Time Given: 07:45 Mahamed Doshi MD May 09, 2018 08:18
[2018-05-09] MEDS ORDERED: Dexamethasone 4mg/ml vial ONE (08:20)
--- NOTE | 2018-05-09 08:26 | Immediate Post-Op Evaluation ---
Immediate Post-Op Evalulation Immediate Post-Op Evalulation Procedure: ACDF C5-6, C6-7 Date of Evaluation: May 09, 2018 Time of Evaluation: 10:50 IV Fluids: 1600 Estimated Blood Loss: 70 Urinary Output: 250 Blood Pressure Systolic: 173 Blood Pressure Diastolic: 116 Pulse Rate: 95 Respiratory Rate: 23 O2 Sat by Pulse Oximetry: 100 Temperature (Fahrenheit): 97.2 Pain Score (1-10): 5 Nausea: No Vomiting: No Complications No complication. Will treat PACU HTN and pain. Patient Status: awake, patent, extubated, none Hydration Status: adequate Drug: Ancef Given Within 1 Hr of Incision: Yes Time Given: 07:45 Mahamed Doshi MD May 09, 2018 08:26
[2018-05-09] MEDS ORDERED: Naloxone 0.4mg/ml Inj ONE (10:27)
[2018-05-09] MEDS ORDERED: LORazepam 1mg tab ORAL PRN (10:30)
[2018-05-09] MEDS ORDERED: HYDROmorphone 1mg/ml Carpuject SUBQ PRN (10:30)
[2018-05-09] MEDS ORDERED: HYDROmorphone 1mg/ml Carpuject IVP PRN (10:30)
[2018-05-09] MEDS ORDERED: Acetaminophen 650 MG SUPP RECTAL PRN (10:30)
[2018-05-09] MEDS ORDERED: PCA Education Pamphlet MISC ONE (10:30)
[2018-05-09] MEDS ORDERED: HYDROcodone/Acetamin 7.5/325 tab ORAL PRN ×2 (10:30)
[2018-05-09] MEDS ORDERED: Rate Change PCA 1 Each MISC PRN (10:30)
[2018-05-09] MEDS ORDERED: Naloxone 0.4mg/ml Inj IVP PRN ×2 (10:30)
[2018-05-09] MEDS ORDERED: PCA HYDROmorphone 1mg/ml 30 ML IV PRN (10:30)
--- NOTE | 2018-05-09 10:38 | Operative Note - PDOC ---
Operative Note Operative Note Chief Complaint: Neck and right ar pain Pre-op Diagnosis: Severe Neural compression at C5-6, C6-7 Procedure: C5-6, C6-7 ACDF Post-op Diagnosis: same as pre-op Operative Findings: consistent w/pre-op dx studies Surgeon: Jenae [facility] Sales And Service Associate: JEFFREY Yates Anesthesiologist: Tico Anesthesia: general Specimen: none Complications: none Condition: stable Estimated Blood Loss: minimal Drains: none Implant(s) used?: Yes - Medtronic Zive Plate, 6- 14mm screws, MedKeaton Rod May 09, 2018 10:38
[2018-05-09] MEDS ORDERED: Labetalol 5mg/ml 20ml vial IV ONE (10:46)
--- NOTE | 2018-05-09 11:03 | Diagnostic Imaging Report ---
INDICATION: Pain the right upper extremity, intraoperative TECHNIQUE: Intraoperative imaging Fluoroscopy time: 19.6 seconds Total dose: 9.28 mGy Total number of images: 3 COMPARISON: None FINDINGS: Intraoperative imaging demonstrates surgical tool anterior to the C5-6 disc and another anterior and C6-7 disc. Subsequent images document anterior fusion hardware with placement of disc spacers at C5-6 and C6-7. IMPRESSION: Intraoperative imaging, as described
[2018-05-09] MEDS: DiphenhydrAMINE 50mg/ml Inj IVP PRN (14:20)
[2018-05-09] MEDS: ceFAZolin 1gm/50ml Premix 50 ML IV SCH ×2 (16:17→23:34)
[2018-05-09] MEDS: PCA shift volume MISC SCH (19:00)
--- NOTE | 2018-05-09 19:29 | Operative Note - Dictated ---
DATE OF OPERATION: 05/09/2018 SURGEON: Keaton Emanuel M.D. [employer] SUPERVISOR: Polly Ibarra ANESTHESIOLOGIST: Mahamed Doshi M.D. ANESTHESIA: General endotracheal with arterial blood pressure monitoring. PREOPERATIVE DIAGNOSIS: Cervical spondylosis with severe collapse and disc osteophyte complex causing stenosis and compression of the cord at both C5-6 and C6-7. POSTOPERATIVE DIAGNOSIS: Cervical spondylosis with severe collapse and disc osteophyte complex causing stenosis and compression of the cord at both C5-6 and C6-7. OPERATIVE PROCEDURES: Right-sided approach to the cervical spine, mobilization of the carotid sheath, trachea, and esophagus and anterior annulotomy, and nuclear diskectomy at both the C5-6 and C6-7 levels with partial vertebrectomy, bilateral neural foraminotomy, and micro neurolysis at right and left at both levels, open-reduction and internal fixation and fusion using a fibular allograft at the C5-6 and C6-7 levels. At C5-6, a 7 mm lordotic fibula allograft was used. At C6-7, a 6 mm lordotic allograft was used. The allograft was 18 in width and 11 in depth with 8 degrees of lordosis. Fixation was with an anterior compression plate that was lordotic covering 2 levels and using six, 13 mm compression screws. Image intensification was used for placement of the plate and screws and for confirmation of level and graft placement. The patient was placed in the supine position. She was induced and intubated. A bolster was placed between her shoulder blades and rolled up towel behind the neck. Halter traction was used 10 pounds to strap the neck and hold it in neutral alignment with lordosis. The arms were tucked distally and protected. Both arms were tucked. A skin marker was used to identify the incision level. An [id number] incision was made on the right side in the skin crease corresponding with that which was templated on the x-ray. Incision was carried down through skin and subcutaneous tissue. The platysma was divided. The jugular venous plexus was identified and dissected free and protected. The carotid sheath was identified as well as the trachea and esophagus. The level of the prevertebral fascia was identified and the dissection was carried medially over the anterior lower cervical spine. East-West and North-South retractors were positioned initially centered at C6-7 and then readjusted to center at C5-6. A lateral image was taken to confirm placement for diskectomies at C5-6 and C6-7. At C6-7, an anterior annulotomy was done with a 15 blade. The cartilaginous endplate and soft disc substance was then removed using larger, smaller, straight, and angled curettes. The dissection was carried down to the posterior osteophytic edge of the bodies of C5 and C6. The microshaver resector was used to free the PLL and the posterior osteophytes and a Midas with an AMA bur was also used to open up the posterior canal and both the right and left foramina. A 2 mm Kerrison was used as well and the posterior osteophytic extensions of the bodies of C6 and C7 were removed exposing the spinal cord. Both foramina right and left were widely open using the 2 mm Kerrison. Dissection was then carried after replacing the retractors up to the C5-6 level where there was a large osteophytic ridge extending inferiorly from the body of 5. This was removed with a rongeur and with the Midas. The disc was opened sequentially from front to back using angled straight curettes. The Midas was used posteriorly to remove the posterior osteophytes from the uncovertebral joints and from the canal. There was a large central osteophyte and soft disc extending into and compressing the cord and this was removed. The posterior osteophytic edges of the bodies of C5 and C6 were removed and a bilateral foraminotomy was accomplished. The space at C5-6 was templated out to 7 mm with a lordotic graft. The space at C6-7 templated to 6 mm. A lateral x-ray was taken to confirm placement of the grafts. Fibular allograft was then tapped gently into place. At both levels and checked again on image. A 35 mm plate was chosen and it was placed anteriorly with a temporary pin. The anterior inferior body of C5 was quite slope with a prominent osteophyte. The plate was positioned just at the inferior edge to include this osteophyte and the construct. Six 13 mm compression screws were used to each in C5, C6, and C7. Good lordosis was obtained. Good fixation on all screws. The upper screws were parallel to the plate of C5. The middle screws were perpendicular and the lower screws were angled downward to about a 15-degree angle into the body of the C7. Structures were checked. The carotid was in good shape as was the esophagus. The wound was copiously irrigated. It was closed in layers including with platysma and a subcuticular suture for the skin. Blood loss was estimated at 50 to 100 mL. The patient was placed in a compression bandage and a collar. Returned to recovery room in good condition. Keaton Emanuel M.D. DR: SLOANE JOB#: [id number] CC: LAURIE
[2018-05-10 00:03] VITALS: BP 112/69
[2018-05-10] MEDS: DiphenhydrAMINE 50mg/ml Inj IVP PRN ×3 (00:45→17:58)
[2018-05-10 04:16] VITALS: BP 107/65
[2018-05-10] MEDS: PCA shift volume MISC SCH ×2 (07:00→19:13)
[2018-05-10 08:00] VITALS: BP 101/65
[2018-05-10] MEDS: ceFAZolin 1gm/50ml Premix 50 ML IV SCH (08:33)
[2018-05-10] MEDS: BuPROPion SR 100mg tab ORAL SCH (08:33)
--- NOTE | 2018-05-10 08:37 | Pulmonology Progress Note ---
Assessment/Plan Assessment/Plan Severe Neural compression at C5-6, C6-7 Cervical disc disease C5-6, C6-7 ACDF PLAN 1. incentive spirometry 2. DVT prophylaxis 3. PT evaluation and therapy 4. Hydration 5. Pain management 6. discharge once stable with outpatient follow up Subjective Allergies: Coded Allergies: SULFA (SULFONAMIDE ANTIBIOTICS) (Verified Allergy, Intermediate, hives, ) Subjective post op Objective Last 24 Hour Vital Signs Date Time Temp Pulse Resp B/P (MAP) Pulse Ox O2 Delivery O2 Flow Rate FiO2 05/10/18 04:16 97.9 84 17 107/65 (79) 94 97.9 05/10/18 04:00 18 05/10/18 00:03 98.5 80 17 112/69 (83) 99 98.5 05/10/18 00:00 18 05/09/18 21:00 Nasal Cannula 3.0 Nasal Cannula 3.0 05/09/18 20:36 98.7 80 16 113/70 (84) 99 98.7 05/09/18 20:00 18 05/09/18 16:03 98.4 78 18 129/80 (96) 99 98.4 05/09/18 16:00 18 05/09/18 14:00 18 05/09/18 13:41 97.8 75 18 130/80 (97) 97 97.8 05/09/18 13:25 18 05/09/18 12:55 18 05/09/18 12:40 20 05/09/18 12:40 97.6 80 20 133/80 (97) 100 97.6 05/09/18 12:40 98.0 05/09/18 12:40 Nasal Cannula 3.0 Nasal Cannula 3.0 05/09/18 12:00 76 20 125/71 100 Nasal Cannula 3 05/09/18 12:00 20 05/09/18 11:45 77 20 132/77 100 Nasal Cannula 3 05/09/18 11:39 98.0 05/09/18 11:30 76 20 131/80 100 Nasal Cannula 3 05/09/18 11:13 79 20 147/90 100 Nasal Cannula 3 05/09/18 11:03 98.0 05/09/18 11:03 91 20 179/110 100 Simple Mask 8 05/09/18 10:50 91 20 185/115 100 Simple Mask 8 05/09/18 10:46 92 20 173/116 100 Simple Mask 8 05/09/18 10:46 92 173/116 05/09/18 10:45 207.0 95 23 100 05/09/18 10:43 97.2 95 23 177/114 100 Simple Mask 8 97.2 05/09/18 10:38 97.2 95 23 173/116 100 Simple Mask 8 97.2 Intake and Output 05/09/18 05/10/18 19:00 07:00 Intake Total 3190 ml 912.5 ml Output Total 1670 ml 800 ml Balance 1520 ml 112.5 ml Intake Oral 340 ml IV Total 2850 ml 912.5 ml Output Urine Total 1600 ml 800 ml Estimated Blood Loss 70 ml # Voids 1 Objective WDWN NAD clear breath sounds bilaterally without rhonchi or wheeze [id number] without MRG NABS nontender no HSM no CCE nonfocal Current Medications Medications (Trade) Dose Ordered Sig/Connor Route PRN Reason Start Time Stop Time Status Last Admin Dose Admin Acetaminophen (Tylenol) 650 mg Q4H PRN ORAL headache or temp>101 05/09/18 10:30 06/08/18 10:29 Acetaminophen (Tylenol) 650 mg Q4H PRN RECTAL headache or temp>101 05/09/18 10:30 06/08/18 10:29 Acetaminophen (Tylenol) 650 mg Q6H PRN ORAL Mild Pain (Pain Scale 1-3) 05/09/18 10:30 06/08/18 10:29 Bupropion HCl (Wellbutrin SR) 100 mg DAILY ORAL 05/10/18 09:00 06/09/18 08:59 05/10/18 08:33 Dextrose/ Electrolytes 1,000 ml @ 75 mls/hr [id number] IV 05/09/18 14:00 06/08/18 13:59 05/10/18 04:06 Diphenhydramine HCl (Benadryl) 25 mg Q6H PRN IVP Itching/Pruritis 05/09/18 10:30 05/11/18 10:29 05/10/18 00:45 Diphenhydramine HCl (Benadryl) 25 mg Q6H PRN ORAL Itching 05/11/18 10:30 06/10/18 10:29 Fluoxetine HCl (PROzac) 20 mg DAILY ORAL 05/10/18 09:00 06/09/18 08:59 05/10/18 08:33 Hydromorphone HCl 30 ml @ 0 mls/hr Q24H PRN IV For Pain 05/09/18 10:30 05/11/18 10:29 05/09/18 12:00 Hydromorphone HCl (Dilaudid) 2 mg Q4H PRN IVP Moderate Pain (Pain Scale 4-6) 05/09/18 10:30 05/11/18 10:29 Hydromorphone HCl (Dilaudid) 2 mg q3h PRN SUBQ Severe Pain (Pain Scale 7-10) 05/09/18 10:30 05/11/18 10:29 05/09/18 23:35 Lorazepam (Ativan) 1 mg Q4H PRN ORAL Muscle Spasm 05/09/18 10:30 05/11/18 10:29 Miscellaneous Medication (PULP MIXER Rate Change) 1 ea DAILY PRN MISC rate change 05/09/18 10:30 05/11/18 10:29 Miscellaneous Medication (PULP MIXER shift volume) 1 ea Q12HR@0700,1900 MISC 05/09/18 19:00 05/11/18 18:59 05/10/18 07:00 Naloxone HCl (Narcan) 0.1 mg Q1M PRN IVP RR<10/min OR SBP<90 mmHg 05/09/18 10:30 05/11/18 10:29 Ondansetron HCl (Zofran) 4 mg Q6H PRN IVP Nausea & Vomiting 05/09/18 10:30 05/11/18 10:29 Pantoprazole (Protonix) 40 mg BEDTIME ORAL 05/09/18 21:00 06/08/18 20:59 Pravastatin Sodium (Pravachol) 40 mg BEDTIME ORAL 05/09/18 21:00 06/08/18 20:59 Prochlorperazine (Compazine) 10 mg Q6H PRN IVP Nausea & Vomiting 05/09/18 10:30 06/08/18 10:29 Temazepam (Restoril) 15 mg HSPRN PRN ORAL Insomnia 05/09/18 20:00 05/16/18 19:59 Juan Kang MD May 10, 2018 08:37
--- NOTE | 2018-05-10 11:33 | General Surgery Progress Note ---
General Surgery-Progress Note Subjective Procedure Performed C5-6, C6-7 ACDF Symptoms: improved Objective Last 24 Hour Vital Signs Date Time Temp Pulse Resp B/P (MAP) Pulse Ox O2 Delivery O2 Flow Rate FiO2 05/10/18 08:59 Room Air 05/10/18 08:00 18 05/10/18 08:00 98.6 83 19 101/65 (77) 95 98.6 05/10/18 04:16 97.9 84 17 107/65 (79) 94 97.9 05/10/18 04:00 18 05/10/18 00:03 98.5 80 17 112/69 (83) 99 98.5 05/10/18 00:00 18 05/09/18 21:00 Nasal Cannula 3.0 Nasal Cannula 3.0 05/09/18 20:36 98.7 80 16 113/70 (84) 99 98.7 05/09/18 20:00 18 05/09/18 16:03 98.4 78 18 129/80 (96) 99 98.4 05/09/18 16:00 18 05/09/18 14:00 18 05/09/18 13:41 97.8 75 18 130/80 (97) 97 97.8 05/09/18 13:25 18 05/09/18 12:55 18 05/09/18 12:40 20 05/09/18 12:40 97.6 80 20 133/80 (97) 100 97.6 05/09/18 12:40 98.0 05/09/18 12:40 Nasal Cannula 3.0 Nasal Cannula 3.0 05/09/18 12:00 76 20 125/71 100 Nasal Cannula 3 05/09/18 12:00 20 05/09/18 11:45 77 20 132/77 100 Nasal Cannula 3 05/09/18 11:39 98.0 I&O Intake and Output 05/09/18 05/10/18 19:00 07:00 Intake Total 3190 ml 912.5 ml Output Total 1670 ml 800 ml Balance 1520 ml 112.5 ml Intake Oral 340 ml IV Total 2850 ml 912.5 ml Output Urine Total 1600 ml 800 ml Estimated Blood Loss 70 ml # Voids 1 Dressing: dry Wound: clean Additional Comments Patient having generalized itching - poss medication allergy. Shows 4/5 strength in Right upper extremity, same as pre-op. Dr. Kang following. Keaton Yates May 10, 2018 11:33
[2018-05-10 12:00] VITALS: BP 96/57
[2018-05-10 16:00] VITALS: BP 107/66
[2018-05-10 20:00] VITALS: BP 123/70
[2018-05-11] VITALS: BP 123/71
[2018-05-11 04:00] VITALS: BP 118/76
[2018-05-11] MEDS: DiphenhydrAMINE 50mg/ml Inj IVP PRN (06:21)
[2018-05-11] MEDS: PCA shift volume MISC SCH (07:22)
[2018-05-11 08:16] VITALS: BP 101/68
[2018-05-11] MEDS: BuPROPion SR 100mg tab ORAL SCH (08:23)
[2018-05-11 12:00] VITALS: BP 128/77
[2018-05-11] MEDS ORDERED: Simethicone 80mg tab ORAL PRN (12:30)
--- NOTE | 2018-05-11 13:50 | General Surgery Progress Note ---
General Surgery-Progress Note Subjective Procedure Performed C5-6, C6-7 ACDF Symptoms: improved Objective Last 24 Hour Vital Signs Date Time Temp Pulse Resp B/P (MAP) Pulse Ox O2 Delivery O2 Flow Rate FiO2 05/11/18 12:23 18 05/11/18 12:00 98.4 88 20 128/77 (94) 96 98.4 05/11/18 08:31 Room Air 05/11/18 08:16 98.8 89 18 101/68 (79) 95 98.8 05/11/18 08:00 18 05/11/18 04:00 99.8 88 18 118/76 (90) 96 99.8 05/11/18 04:00 18 05/11/18 00:00 18 05/11/18 00:00 100.0 97 18 123/71 (88) 97 100.0 05/10/18 21:00 Room Air 05/10/18 20:00 99.0 93 18 123/70 (87) 97 99.0 05/10/18 20:00 18 05/10/18 16:00 18 05/10/18 16:00 99.6 93 18 107/66 (80) 95 99.6 05/10/18 14:30 Room Air I&O Intake and Output 05/10/18 05/11/18 19:00 07:00 Intake Total 1045 ml 900 ml Output Total 400 ml Balance 645 ml 900 ml Intake Oral 100 ml IV Total 825 ml 900 ml Other 120 ml Output Urine Total 400 ml # Voids 3 4 # Bowel Movements 1 Dressing: dry Wound: clean Drains: none Additional Comments Strength 5/5 both upper extremities. No numbness. Wound clean and dry Probable discharge home tomorrow. D/C POULTRY BONER Dr. Kang following Keaton Yates May 11, 2018 13:50
[2018-05-11 16:00] VITALS: BP 113/71
[2018-05-11] MEDS ORDERED: Tubing IV Secondary IV ONE (17:21)
--- NOTE | 2018-05-11 19:13 | Pulmonology Progress Note ---
Assessment/Plan Assessment/Plan Severe Neural compression at C5-6, C6-7 Cervical disc disease C5-6, C6-7 ACDF PLAN 1. incentive spirometry 2. DVT prophylaxis 3. PT evaluation and therapy 4. Hydration; simethicone prn 5. Pain management 6. discharge next 1-2 days impression, plan, and exam edited and reviewed in detail care discussed with RN Subjective Allergies: Coded Allergies: SULFA (SULFONAMIDE ANTIBIOTICS) (Verified Allergy, Intermediate, hives, ) Subjective gas mild abdominal discomfort Objective Last 24 Hour Vital Signs Date Time Temp Pulse Resp B/P (MAP) Pulse Ox O2 Delivery O2 Flow Rate FiO2 05/11/18 16:00 18 05/11/18 12:23 18 05/11/18 12:00 98.4 88 20 128/77 (94) 96 98.4 05/11/18 08:31 Room Air 05/11/18 08:16 98.8 89 18 101/68 (79) 95 98.8 05/11/18 08:00 18 05/11/18 04:00 99.8 88 18 118/76 (90) 96 99.8 05/11/18 04:00 18 05/11/18 00:00 18 05/11/18 00:00 100.0 97 18 123/71 (88) 97 100.0 05/10/18 21:00 Room Air 05/10/18 20:00 99.0 93 18 123/70 (87) 97 99.0 05/10/18 20:00 18 Intake and Output 05/10/18 05/11/18 19:00 07:00 Intake Total 1045 ml 900 ml Output Total 400 ml Balance 645 ml 900 ml Intake Oral 100 ml IV Total 825 ml 900 ml Other 120 ml Output Urine Total 400 ml # Voids 3 4 # Bowel Movements 1 Objective WDWN NAD clear breath sounds bilaterally without rhonchi or wheeze [id number] without MRG NABS nontender no HSM no CCE nonfocal Microbiology Date/Time Source Procedure Growth Status 05/09/18 05:55 Nasal Nares MRSA Culture - Final NO METHICILLIN RESISTANT STAPH AUREUS... Complete Current Medications Medications (Trade) Dose Ordered Sig/Connor Route PRN Reason Start Time Stop Time Status Last Admin Dose Admin Acetaminophen (Tylenol) 650 mg Q4H PRN ORAL headache or temp>101 05/09/18 10:30 06/08/18 10:29 Acetaminophen (Tylenol) 650 mg Q4H PRN RECTAL headache or temp>101 05/09/18 10:30 06/08/18 10:29 Acetaminophen (Tylenol) 650 mg Q6H PRN ORAL Mild Pain (Pain Scale 1-3) 05/09/18 10:30 06/08/18 10:29 Bupropion HCl (Wellbutrin SR) 100 mg DAILY ORAL 05/10/18 09:00 06/09/18 08:59 05/11/18 08:23 Dextrose/ Electrolytes 1,000 ml @ 75 mls/hr [id number] IV 05/09/18 14:00 06/08/18 13:59 05/11/18 06:40 Diphenhydramine HCl (Benadryl) 25 mg Q6H PRN ORAL Itching 05/11/18 10:30 06/10/18 10:29 Fluoxetine HCl (PROzac) 20 mg DAILY ORAL 05/10/18 09:00 06/09/18 08:59 05/11/18 08:23 Pantoprazole (Protonix) 40 mg BEDTIME ORAL 05/09/18 21:00 06/08/18 20:59 05/10/18 20:58 Pravastatin Sodium (Pravachol) 40 mg BEDTIME ORAL 05/09/18 21:00 06/08/18 20:59 05/10/18 21:00 Prochlorperazine (Compazine) 10 mg Q6H PRN IVP Nausea & Vomiting 05/09/18 10:30 06/08/18 10:29 Simethicone (Mylicon) 80 mg QIDPRN PRN ORAL abdominal cramping 05/11/18 12:30 06/10/18 12:29 05/11/18 13:02 Temazepam (Restoril) 15 mg HSPRN PRN ORAL Insomnia 05/09/18 20:00 05/16/18 19:59 Juan Kang MD May 11, 2018 19:13
[2018-05-11 20:00] VITALS: BP 113/87
[2018-05-12] VITALS: BP 129/78
[2018-05-12 04:00] VITALS: BP 127/74
[2018-05-12 08:00] VITALS: BP 131/72
[2018-05-12] MEDS: BuPROPion SR 100mg tab ORAL SCH (08:19)
--- NOTE | 2018-05-12 08:48 | Pulmonology Progress Note ---
Assessment/Plan Assessment/Plan Severe Neural compression at C5-6, C6-7 Cervical disc disease C5-6, C6-7 ACDF PLAN 1. incentive spirometry 2. DVT prophylaxis 3. PT evaluation and therapy 4. Hydration; simethicone prn 5. Pain management 6. discharge in am 7. albuterol HHN PRN impression, plan, and exam edited and reviewed in detail care discussed with RN Subjective Allergies: Coded Allergies: SULFA (SULFONAMIDE ANTIBIOTICS) (Verified Allergy, Intermediate, hives, ) Subjective abdominal complaints resolved notes difficulty with secretions Objective Last 24 Hour Vital Signs Date Time Temp Pulse Resp B/P (MAP) Pulse Ox O2 Delivery O2 Flow Rate FiO2 05/12/18 08:00 18 05/12/18 08:00 98.6 81 18 131/72 (91) 98 98.6 05/12/18 04:00 18 05/12/18 04:00 99.0 87 17 127/74 (91) 97 99.0 05/12/18 00:00 18 05/12/18 00:00 99.3 90 18 129/78 (95) 96 99.3 05/11/18 20:35 Room Air 05/11/18 20:00 18 05/11/18 20:00 99.8 85 18 113/87 (96) 98 99.8 05/11/18 16:00 18 05/11/18 16:00 98.4 87 18 113/71 (85) 97 98.4 05/11/18 12:23 18 05/11/18 12:00 98.4 88 20 128/77 (94) 96 98.4 Intake and Output 05/11/18 05/12/18 19:00 07:00 Intake Total 1900 ml 1380 ml Balance 1900 ml 1380 ml Intake Oral 1000 ml 480 ml IV Total 900 ml 900 ml # Voids 6 4 Objective WDWN NAD clear breath sounds bilaterally without rhonchi or wheeze [id number] without MRG NABS nontender no HSM no CCE nonfocal Current Medications Medications (Trade) Dose Ordered Sig/Connor Route PRN Reason Start Time Stop Time Status Last Admin Dose Admin Acetaminophen (Tylenol) 650 mg Q4H PRN ORAL headache or temp>101 05/09/18 10:30 06/08/18 10:29 Acetaminophen (Tylenol) 650 mg Q4H PRN RECTAL headache or temp>101 05/09/18 10:30 06/08/18 10:29 Acetaminophen (Tylenol) 650 mg Q6H PRN ORAL Mild Pain (Pain Scale 1-3) 05/09/18 10:30 06/08/18 10:29 Acetaminophen/ Hydrocodone Bitart ([place] 7.5/325) 1 tab Q4H PRN ORAL For Moderate Pain (4-6) 05/12/18 07:53 05/19/18 07:52 Bupropion HCl (Wellbutrin SR) 100 mg DAILY ORAL 05/10/18 09:00 06/09/18 08:59 05/12/18 08:19 Dextrose/ Electrolytes 1,000 ml @ 75 mls/hr [id number] IV 05/09/18 14:00 06/08/18 13:59 05/12/18 08:19 Diphenhydramine HCl (Benadryl) 25 mg Q6H PRN ORAL Itching 05/11/18 10:30 06/10/18 10:29 05/11/18 19:20 Fluoxetine HCl (PROzac) 20 mg DAILY ORAL 05/10/18 09:00 06/09/18 08:59 05/12/18 08:19 Pantoprazole (Protonix) 40 mg BEDTIME ORAL 05/09/18 21:00 06/08/18 20:59 05/11/18 21:01 Pravastatin Sodium (Pravachol) 40 mg BEDTIME ORAL 05/09/18 21:00 06/08/18 20:59 05/11/18 21:00 Prochlorperazine (Compazine) 10 mg Q6H PRN IVP Nausea & Vomiting 05/09/18 10:30 06/08/18 10:29 Simethicone (Mylicon) 80 mg QIDPRN PRN ORAL abdominal cramping 05/11/18 12:30 06/10/18 12:29 05/11/18 13:02 Temazepam (Restoril) 15 mg HSPRN PRN ORAL Insomnia 05/09/18 20:00 05/16/18 19:59 Juan Kang MD May 12, 2018 08:48
[2018-05-12] MEDS ORDERED: Albuterol ud Inhalation HHN PRN (08:59)
--- NOTE | 2018-05-12 09:44 | General Surgery Progress Note ---
General Surgery-Progress Note Subjective Procedure Performed C5-6, C6-7 ACDF Symptoms: improved Objective Last 24 Hour Vital Signs Date Time Temp Pulse Resp B/P (MAP) Pulse Ox O2 Delivery O2 Flow Rate FiO2 05/12/18 08:00 18 05/12/18 08:00 98.6 81 18 131/72 (91) 98 98.6 05/12/18 08:00 Room Air 05/12/18 04:00 18 05/12/18 04:00 99.0 87 17 127/74 (91) 97 99.0 05/12/18 00:00 18 05/12/18 00:00 99.3 90 18 129/78 (95) 96 99.3 05/11/18 20:35 Room Air 05/11/18 20:00 18 05/11/18 20:00 99.8 85 18 113/87 (96) 98 99.8 05/11/18 16:00 18 05/11/18 16:00 98.4 87 18 113/71 (85) 97 98.4 05/11/18 12:23 18 05/11/18 12:00 98.4 88 20 128/77 (94) 96 98.4 I&O Intake and Output 05/11/18 05/12/18 19:00 07:00 Intake Total 1900 ml 1380 ml Balance 1900 ml 1380 ml Intake Oral 1000 ml 480 ml IV Total 900 ml 900 ml # Voids 6 4 Dressing: dry Wound: clean Drains: none Additional Comments Patient is stable overnight. She has completed PT / OT and is cleared for D/C home. Dr. Pearl liriano. Patient instructed in after care, has pain medications. Ok to D/C home. Keaton Yates May 12, 2018 09:44
[2018-05-12 11:45] VITALS: BP 109/73
[2018-05-12] MEDS: HYDROcodone/Acetamin 7.5/325 tab ORAL PRN ×2 (12:29→18:09)
[2018-05-12 16:00] VITALS: BP 124/79
[2018-05-12 20:00] VITALS: BP 142/84
[2018-05-13] VITALS: BP 136/84
[2018-05-13 04:00] VITALS: BP 108/49
[2018-05-13 08:00] VITALS: BP 139/87
--- NOTE | 2018-05-13 08:09 | Pulmonology Progress Note ---
Assessment/Plan Assessment/Plan Severe Neural compression at C5-6, C6-7 Cervical disc disease C5-6, C6-7 ACDF PLAN 1. incentive spirometry 2. DVT prophylaxis 3. PT evaluation and therapy 4. overall stable and improved 5. Pain management 6. discharge today impression, plan, and exam edited and reviewed in detail care discussed with RN Subjective Allergies: Coded Allergies: SULFA (SULFONAMIDE ANTIBIOTICS) (Verified Allergy, Intermediate, hives, ) Subjective improved ambulating Objective Last 24 Hour Vital Signs Date Time Temp Pulse Resp B/P (MAP) Pulse Ox O2 Delivery O2 Flow Rate FiO2 05/13/18 04:00 98.8 86 18 108/49 (68) 98 98.8 05/13/18 00:00 97.8 86 19 136/84 (101) 98 97.8 05/12/18 21:00 Room Air 05/12/18 20:00 98.1 79 18 142/84 (103) 100 98.1 05/12/18 19:17 86 18 99 Room Air 21 05/12/18 19:08 84 18 97 Room Air 21 05/12/18 19:08 84 18 Room Air 21 05/12/18 18:39 97.7 05/12/18 18:09 97.7 05/12/18 16:00 97.7 88 18 124/79 (94) 98 97.7 05/12/18 12:29 97.9 05/12/18 11:45 97.9 81 18 109/73 (85) 97 97.9 05/12/18 09:53 18 Intake and Output 05/12/18 05/13/18 19:00 07:00 Intake Total 1000 ml Balance 1000 ml Intake Oral 1000 ml # Voids 2 Objective WDWN NAD clear breath sounds bilaterally without rhonchi or wheeze [id number] without MRG NABS nontender no HSM no CCE nonfocal Current Medications Medications (Trade) Dose Ordered Sig/Connor Route PRN Reason Start Time Stop Time Status Last Admin Dose Admin Acetaminophen (Tylenol) 650 mg Q4H PRN ORAL headache or temp>101 05/09/18 10:30 06/08/18 10:29 Acetaminophen (Tylenol) 650 mg Q4H PRN RECTAL headache or temp>101 05/09/18 10:30 06/08/18 10:29 Acetaminophen (Tylenol) 650 mg Q6H PRN ORAL Mild Pain (Pain Scale 1-3) 05/09/18 10:30 06/08/18 10:29 Acetaminophen/ Hydrocodone Bitart ([place] 7.5/325) 1 tab Q4H PRN ORAL For Moderate Pain (4-6) 05/12/18 07:53 05/19/18 07:52 05/12/18 18:09 Albuterol Sulfate (Proventil) 2.5 mg Q4H PRN HHN congestion 05/12/18 08:59 05/17/18 08:58 05/12/18 19:08 Bupropion HCl (Wellbutrin SR) 100 mg DAILY ORAL 05/10/18 09:00 06/09/18 08:59 05/12/18 08:19 Diphenhydramine HCl (Benadryl) 25 mg Q6H PRN ORAL Itching 05/11/18 10:30 06/10/18 10:29 05/11/18 19:20 Fluoxetine HCl (PROzac) 20 mg DAILY ORAL 05/10/18 09:00 06/09/18 08:59 05/12/18 08:19 Pantoprazole (Protonix) 40 mg BEDTIME ORAL 05/09/18 21:00 06/08/18 20:59 05/12/18 21:20 Pravastatin Sodium (Pravachol) 40 mg BEDTIME ORAL 05/09/18 21:00 06/08/18 20:59 05/12/18 21:20 Prochlorperazine (Compazine) 10 mg Q6H PRN IVP Nausea & Vomiting 05/09/18 10:30 06/08/18 10:29 Simethicone (Mylicon) 80 mg QIDPRN PRN ORAL abdominal cramping 05/11/18 12:30 06/10/18 12:29 05/11/18 13:02 Temazepam (Restoril) 15 mg HSPRN PRN ORAL Insomnia 05/09/18 20:00 05/16/18 19:59 Juan Kang MD May 13, 2018 08:09
[2018-05-13] MEDS: BuPROPion SR 100mg tab ORAL SCH (08:54)
[2018-05-13] MEDS: HYDROcodone/Acetamin 7.5/325 tab ORAL PRN (10:50)
[2018-05-13 12:00] VITALS: BP 124/87
[2018-05-13 16:00] VITALS: BP 125/87
--- NOTE | 2018-05-17 14:10 | Discharge Summary ---
Discharge Summary Hospital Course Date of Admission May 09, 2018 at 05:36 Date of Discharge May 13, 2018 at 17:30 Admitting Diagnosis Severe neural compression at C5-6, C6-7 Reason for Hospitalization: elective surgery HPI Vianey Bhardwaj is a 58 year old female who was admitted on May 09, 2018 at 05:36 for C5-6, C6-[address] Kang IM Procedures s/p 05/09/[address] Emanuel Hospital Course status post surgery course of recovery uneventful initially IV fluids s/p perioperative antibiotics neurovascular status closely monitored, stable incision clean, dry ,and intact pain management addressed hemodynamically stable ambulated with PT /OT fall precautions maintained; safe for ambulation tolerated diet , IV fluids discontinued antiemetics were on board as needed voided freely bowel regimen instituted patient was stable for discharge discharge instructions provided follow up with surgeon as advised by surgeon FINAL DIAGNOSES Severe neural compression at C5-6, C6-7 cervical disc disease s/p ACDF C5-6, C6-7 with instrumentation. Discharge Medications Continued Medications: Bupropion Hcl* (Bupropion Hcl*) 100 Mg Tablet 100 MG ORAL DAILY, TAB (This prescription has been renewed) Fluoxetine Hcl* (Fluoxetine Hcl*) 20 Mg Capsule 20 MG ORAL DAILY, CAP (This prescription has been renewed) Multivitamins* (Multivitamins*) 1 Each Tablet 1 TAB ORAL DAILY, TAB 0 Refills (This prescription has been renewed) Omeprazole (Omeprazole) 20 Mg Capsule.dr 20 MG ORAL HS, CAP (This prescription has been renewed) Pravastatin Sodium (Pravachol) 40 Mg Tablet 40 MG ORAL BEDTIME, TAB (This prescription has been renewed) Tramadol Hcl* (Ultram*) 50 Mg Tablet 50 MG ORAL BID PRN for For Pain, #30 TAB 0 Refills (This prescription has been renewed) Discharge Condition Upon Discharge: stable Discharge Disposition Patient was discharged to Home () Discharge Instructions Discharge Instructions Special Instructions I have been assigned to complete a D/C Summary on this account. I was not involved in the patient management Milly Castillo NP May 17, 2018 14:10
== END 2018-05-13 17:30 | disposition home or self-care (01) | DRG 473 ==
LOC: SDSOVERFLO 05:36 → 3E 12:40
PROC: 0RT30ZZ Resection of Cervical Vertebral Disc, Open Approach (ICD-10-PCS; principal; 2018-05-09 07:30)
PROC: 0RG20K0 Fusion of 2 or more Cervical Vertebral Joints with Nonautologous Tissue Substitute, Anterior Approach, Anterior Column, Open Approach (ICD-10-PCS; principal; 2018-05-09 07:30)
DX: M47.22 Other spondylosis with radiculopathy, cervical region (principal); M25.78 Osteophyte, vertebrae; M48.02 Spinal stenosis, cervical region; E66.3 Overweight; M51.26 Other intervertebral disc displacement, lumbar region; M54.16 Radiculopathy, lumbar region
CPT/HCPCS: 36415; 72040; 76001; 86850; 86900; 86901; 87081; 94003; 94150; 94640; 94664; J2250; J2405